=== PATIENT | female | born 1935 | race Caucasian/White ===

== ENCOUNTER 2019-02-18 10:50 | Inpatient (IN) | payer MEDICARE, BC ==
[2019-02-18] MEDS: SODIUM CHLORIDE 0.9% FLUSH 10 ML SOL IV SCH ×3 (13:30→20:42)
[2019-02-18] MEDS ORDERED: WARFARIN SODIUM 2.5 MG TAB PO SCH (17:30)
[2019-02-18] MEDS ORDERED: ATROPINE 0.4 MG/ML SOL IV PRN (17:48)
[2019-02-18] MEDS: SIMVASTATIN 20 MG TAB PO SCH (20:42)
[2019-02-19] MEDS: SODIUM CHLORIDE 0.9% FLUSH 10 ML SOL IV SCH ×4 (04:37→21:15)
[2019-02-19 07:31] LABS: BASOPHILS % (AUTO) 2 % (0-3); EOSINOPHILS % (AUTO) 5 % (0-9); HEMATOCRIT 36 % (35-47); HEMOGLOBIN 11.7 gm/dl (12.0-15.5); LYMPHOCYTES % (AUTO) 23.6 % (10-50); MEAN CORPUSCULAR HGB CONC 32.1 gm/dl (32.0-36.0); MEAN CORPUSCULAR VOLUME 90 fL (81-99); MONOCYTES % (AUTO) 11.7 % (0-12); NEUTROPHILS % (AUTO) 57.8 % (37-80)
[2019-02-19 07:36] LABS: CALCIUM 8.7 mg/dl (8.5-10.1); CARBON DIOXIDE 26.1 mEq/L (21-32); CREATININE 0.93 mg/dl (0.60-1.00); POTASSIUM 4.3 mMol/L (3.5-5.1)
[2019-02-19 07:40] LABS: INR 2.19 (0.86-1.12)
[2019-02-19] MEDS: WARFARIN SODIUM 2.5 MG TAB PO SCH (09:33)
[2019-02-19] MEDS: FUROSEMIDE 20 MG TAB PO SCH (09:34)
[2019-02-19] MEDS ORDERED: HYDRALAZINE HYDROCHLORIDE 20 MG/ML SOL IV ONE (18:36)
[2019-02-19] MEDS: SIMVASTATIN 20 MG TAB PO SCH (21:15)
[2019-02-20] MEDS: SODIUM CHLORIDE 0.9% FLUSH 10 ML SOL IV SCH ×3 (03:18→20:01)
[2019-02-20] MEDS: FUROSEMIDE 20 MG TAB PO SCH (08:52)
[2019-02-20] MEDS ORDERED: ATENOLOL 25 MG TAB PO SCH ×2 (09:00→09:57)
[2019-02-20] MEDS ORDERED: WARFARIN SODIUM 2.5 MG TAB PO SCH (09:00)
[2019-02-20] MEDS ORDERED: PATIENT EDUCATION 1 MISC PRN (10:11)
[2019-02-20] MEDS: LOSARTAN POTASSIUM 50 MG TAB PO SCH (10:21)
[2019-02-20] MEDS: SIMVASTATIN 20 MG TAB PO SCH (20:01)
[2019-02-21] MEDS: SODIUM CHLORIDE 0.9% FLUSH 10 ML SOL IV SCH ×2 (04:52→13:08)
[2019-02-21 08:11] VITALS: RESP 16; TEMP 97.4
[2019-02-21] MEDS ORDERED: LOSARTAN POTASSIUM 50 MG TAB PO SCH (09:00)
[2019-02-21] MEDS: FUROSEMIDE 20 MG TAB PO SCH (09:42)
[2019-02-21] MEDS: WARFARIN SODIUM 2.5 MG TAB PO SCH (09:43)
[2019-02-21] MEDS: LOSARTAN POTASSIUM 50 MG TAB PO SCH ×2 (09:44→13:03)
[2019-02-21] MEDS ORDERED: PATIENT EDUCATION 1 MISC PRN (09:47)
[2019-02-21 12:25] VITALS: O2SAT 96
[2019-02-21 12:52] VITALS: BP 152/82; PULSE 54
[2019-02-25] MEDS ORDERED: PATIENT EDUCATION 1 MISC PRN (09:54)
== END 2019-02-21 14:45 | disposition home or self-care (01) | DRG 310 ==
LOC: ACUTE CARE 11:41 → UNDOADMOB 11:41 → INTOOBSV 14:35 → OBSVTOIN 14:35 → ACUTE CARE 02-20 14:35 → OBSVTOIN 02-20 14:35 → UNDOADMOB 02-20 14:35 → INTOOBSV 02-20 14:35 → UNDODISIN 02-21 14:45
PROVIDERS: ADMIT Family Medicine; ATTEND Family Medicine
DX: R00.1 Bradycardia, unspecified (principal); I48.2 Chronic atrial fibrillation; R06.02 Shortness of breath; Z79.01 Long term (current) use of anticoagulants; R53.83 Other fatigue
CPT/HCPCS: 36415; 80048; 85025; 85610; 93012; J0360; A9270-GY